=== PATIENT | male | born 1995 | race Asian ===

== ENCOUNTER → 2017-04-18 02:06 | Emergency (ER) | payer OTHER ==
[2017-04-18 02:19] VITALS: BP 117/70
[2017-04-18 02:50] LABS: Hematocrit 41 % (42-52); Hemoglobin 14.3 g/dl (14.0-18.0); Mean Corpuscular HGB Conc 35 g/dl (31-36); Mean Corpuscular Hemoglobin 31 pg (27-31); Mean Corpuscular Volume 89 fL (80-94); Mean Platelet Volume 8 um3 (7.4-10.4); Red Blood Count 4.67 10^6/ul (4.0-5.4); Red Cell Distribution Width 13 % (10.5-15); White Blood Count 9.3 10^3/ul (3.5-10.8)
[2017-04-18 03:06] LABS: Albumin 4.4 g/dL (3.2-5.2); BUN/Creatinine Ratio 12.2 (8-20); Calcium 9.3 mg/dL (8.6-10.3); EGFR Non-African American 119.8 (>60); Potassium 3.5 mmol/L (3.5-5.0); Total Bilirubin 0.9 mg/dL (0.2-1.0); Total Protein 7.4 g/dL (6.4-8.9)
--- NOTE | 2017-04-18 06:25 | ED ---
Jason Coley Rebecca, scribed for Edmundo Fuentes on 04/18/17 at 0228 . Substance Abuse/Use - HPI Summary HPI Summary: Pt is a 21 y/o M BIBA who presents to ED with EtOH intoxication. Level 5 caveat due to EtOH intoxication. - History Of Current Complaint Chief Complaint: EDSubstanceAbuse Stated Complaint: ETOH Time Seen by Provider: 04/18/17 02:20 Hx Obtained From: EMS Hx From Patient Unobtainable Due To: Other - EtOH intoxication Ingestion History: Type/Name Of Drug - EtOH, Amount Ingested - Unknown Overdose Characteristics: Oral Aggravating Factor(s): Nothing Alleviating Factor(s): Nothing PMH/Surg Hx/FS Hx/Imm Hx Previously Healthy: No - UNKNOWN - Level 5 cveat due to EtOH intoxication Infectious Disease History: Unable to Obtain/Confirm Infectious Disease History: Denies: Traveled Outside the [place] in Last 30 Days - Unknown - Family History Known Family History: Positive: Unknown - Level 5 caveat due to EtOH intoxication - Social History Occupation: Student Alcohol Use: Presents with EtOH intoxication Review of Systems Negative: Fever Positive: Other - EtOH intoxication All Other Systems Reviewed And Are Negative: No - Comments Additional Review of Systems Comments: Level 5 caveat due to EtOH intoxication Physical Exam - Summary Physical Exam Summary: Appearance: Well appearing, no pain distress Skin: warm, dry, reflects adequate perfusion Head/face: normal Eyes: EOMI, MICHELLE ENT: normal Neck: supple, nontender Respiratory: CTA, breath sounds present Cardiovascular: RRR, pulses symmetrical Abdomen: nontender, soft Bowel: present Musculoskeletal: normal, strength/ROM intact Neuro: stuporous Triage Information Reviewed: Yes Vital Signs On Initial Exam: Initial Vitals Temp Pulse Resp BP Pulse Ox 98.3 F 80 20 117/70 96 04/18/17 02:17 04/18/17 02:17 04/18/17 02:17 04/18/17 02:17 04/18/17 02:17 Vital Signs Reviewed: Yes Diagnostics - Vital Signs Vital Signs Temp Pulse Resp BP Pulse Ox 04/18/17 02:17 98.3 F 80 20 117/70 96 - Laboratory Result Diagrams: 04/18/17 02:37 04/18/17 02:37 Lab Statement: Any lab studies that have been ordered have been reviewed, and results considered in the medical decision making process. Course/Dx - Course Assessment/Plan: Pt is a 21 y/o M BIBA who presents to ED with EtOH intoxication. Level 5 caveat due to EtOH intoxication. Serum alcohol of 229. Upon EtOH metabolism, pt will be D/C to home with Dx of acute alcohol intoxication and follow up with his PCP. - Diagnoses Provider Diagnoses: Acute alcohol intoxication Discharge - Discharge Plan Condition: Stable Disposition: HOME Patient Education Materials: Alcohol Intoxication (ED) Referrals: [facility] [place] [facility] [Outside] - 3 Days The documentation as recorded by the Jason kelley Rebecca accurately reflects the service I personally performed and the decisions made by Alfredo cleveland Emmanuel.
== END | disposition home or self-care (01) ==
LOC: ED 02:06
DX: F10.129 Alcohol abuse with intoxication, unspecified (principal); Y90.7 Blood alcohol level of 200-239 mg/100 ml
CPT/HCPCS: 36415; 80053; 80320; 85025; 99282; G0480